=== PATIENT | male | born 1965 | race Two or more races ===

== ENCOUNTER 2019-07-01 09:44 | Observation (INO) | payer SELFPAY ==
[~2019-07-01] VITALS: Ht 175.3 cm; Wt 97.0 kg
--- NOTE | 2019-07-01 10:13 | EKG ---
[facility] [address] [place] [address] Test Date: 2019-07-01 Test Time: 09:50:52 Pat Name: FLORENCIA LOOMIS Department: Room: Gender: Production Machine Tender: : 1965 Requested By: ISAAC JANE Order Number: [id number] Reading MD: Sg Christina MD Measurements Intervals [place] Rate: 62 P: 52 SC: 150 QRS: 28 QRSD: 86 T: 53 QT: 396 QTc: 404 Interpretive Statements SINUS RHYTHM Electronically Signed On 07-01-2019 13:24:02 PHYSICIAN INTERNIST by Sg Christina MD
--- NOTE | 2019-07-01 10:13 | PHYS DOC ---
Past Medical History Past Medical History: Diabetes-Type II, High Cholesterol, Hypertension Smoking Status: Current Every Day Smoker Adult General Chief Complaint Chief Complaint: CHEST PAIN HPI HPI Patient is a 54 year old [place] Islander-speaking male with history of diabetes mellitus, hypertension, dyslipidemia, smoking who presents with with complaint of chest pain. Patient states he had an argument with boyfriend of his daughter this morning and then felt left side sharp chest pain with radiation to left shoulder and associated with shortness of breath that started about an hour prior to arrival to ER without dizziness, nausea, diaphoresis, palpitation, fev er or chills, URI symptoms. Patient rated his pain 5/10 and stated he had episodes of milder chest pain without seeking medical attention. Review of Systems Review of Systems Constitutional: Denies fever or chills [] Eyes: Denies change in visual acuity, redness, or eye pain [] HENT: Denies nasal congestion or sore throat [] Respiratory: Denies cough, reports shortness of breath [] Cardiovascular: No additional information not addressed in HPI [] GI: Denies abdominal pain, nausea, vomiting, bloody stools or diarrhea [] : Denies dysuria or hematuria [] Musculoskeletal: Denies back pain or joint pain [] Integument: Denies rash or skin lesions [] Neurologic: Denies headache, focal weakness or sensory changes [] Endocrine: Denies polyuria or polydipsia [] All other systems were reviewed and found to be within normal limits, except as documented in this note. Current Medications Current Medications Current Medications Medications (Trade) Dose Ordered Sig/Sheron Start Time Stop Time Status Last Admin Dose Admin Acetaminophen/ Hydrocodone Bitart (Lortab 5/325) 1 tab 1X ONCE 07/01/19 11:00 07/01/19 11:01 DC Aspirin (Children'S Aspirin) 324 mg 1X ONCE 07/01/19 10:15 07/01/19 10:17 DC 07/01/19 10:24 324 MG Nitroglycerin (Nitrostat) 0.4 mg PRN Q5MIN PRN 07/01/19 10:15 07/02/19 10:14 07/01/19 10:41 0.4 MG Allergies Allergies Allergies Coded Allergies Type Severity Reaction Last Updated Verified No Known Drug Allergies 07/01/19 No Physical Exam Physical Exam Constitutional: Well developed, well nourished, mild distress, non-toxic appearance. [] HENT: Normocephalic, atraumatic. Eyes: PERRLA, EOMI, conjunctiva normal, no discharge. [] Neck: Normal range of motion, no tenderness, supple, no stridor. [] Cardiovascular:Heart rate regular rhythm, no murmur [] Lungs & Thorax: Bilateral breath sounds clear to auscultation [] Abdomen: Bowel sounds normal, soft, no tenderness, no masses, no pulsatile masses. [] Skin: Warm, dry, no erythema, no rash. [] Back: No tenderness, no CVA tenderness. [] Extremities: No tenderness, no cyanosis, no clubbing, ROM intact, no edema. [] Neurologic: Alert and oriented X 3, no focal deficits noted. [] Psychologic: Affect normal, judgement normal, mood normal. [] Current Patient Data Vital Signs Vital Signs Date Time Temp Pulse Resp B/P (MAP) Pulse Ox O2 Delivery O2 Flow Rate FiO2 07/01/19 10:48 69 17 116/72 (87) 94 Room Air 07/01/19 09:46 98.6 98.6 Lab Values Laboratory Tests Test 07/01/19 10:00 White Blood Count 8.3 x10^3/uL (4.0-11.0) Red Blood Count 4.99 x10^6/uL (4.30-5.70) Hemoglobin 15.0 g/dL (13.0-17.5) Hematocrit 43.6 % (39.0-53.0) Mean Corpuscular Volume 87 fL (79-100) Mean Corpuscular Hemoglobin 30 pg (25-35) Mean Corpuscular Hemoglobin Concent 35 g/dL (31-37) Red Cell Distribution Width 13.5 % (11.5-14.5) Platelet Count 250 x10^3/uL (140-400) Neutrophils (%) (Auto) 63 % (31-73) Lymphocytes (%) (Auto) 25 % (24-48) Monocytes (%) (Auto) 9 % (0-9) Eosinophils (%) (Auto) 2 % (0-3) Basophils (%) (Auto) 1 % (0-3) Neutrophils # (Auto) 5.2 x10^3/uL (1.8-7.7) Lymphocytes # (Auto) 2.1 x10^3/uL (1.0-4.8) Monocytes # (Auto) 0.8 x10^3/uL (0.0-1.1) Eosinophils # (Auto) 0.2 x10^3/uL (0.0-0.7) Basophils # (Auto) 0.1 x10^3/uL (0.0-0.2) Sodium Level 144 mmol/L (136-145) Potassium Level 4.0 mmol/L (3.5-5.1) Chloride Level 108 mmol/L (98-107) H Carbon Dioxide Level 25 mmol/L (21-32) Anion Gap 11 (6-14) Blood Urea Nitrogen 8 mg/dL (8-26) Creatinine 1.1 mg/dL (0.7-1.3) Estimated GFR (Cockcroft-Gault) 70.3 BUN/Creatinine Ratio 7 (6-20) Glucose Level 174 mg/dL (70-99) H Calcium Level 8.8 mg/dL (8.5-10.1) Magnesium Level 2.1 mg/dL (1.8-2.4) Total Bilirubin 0.4 mg/dL (0.2-1.0) Aspartate Amino Transferase (AST) 20 U/L (15-37) Alanine Aminotransferase (ALT) 37 U/L (16-63) Alkaline Phosphatase 103 U/L (46-116) Creatine Kinase 377 U/L (39-308) H Troponin I Quantitative < 0.017 ng/mL (0.000-0.055) QU-Ocm-X-Type Natriuretic Peptide 16 pg/mL (0-124) Total Protein 6.8 g/dL (6.4-8.2) Albumin 4.0 g/dL (3.4-5.0) Albumin/Globulin Ratio 1.4 (1.0-1.7) Lipase 199 U/L (73-393) Laboratory Tests 07/01/19 10:00 Laboratory Tests 07/01/19 10:00 EKG EKG EKG interpreted by me. EKG at 0650 showed normal sinus rhythm at rate of 62, normal NV and QT intervals, no acute ST and T wave elevation. Radiology/Procedures Radiology/Procedures [facility] [address] [place] [address] IMAGING REPORT Signed PATIENT: FLORENCIA LOOMIS ACCOUNT: [id number] : 1965 LOCATION: ER AGE: 54 SEX: M EXAM STATUS: REG ER ORD. PHYSICIAN: ISAAC JANE MD REASON: Chest pain PROCEDURE: PORTABLE CHEST 1V PORTABLE CHEST 1V History: Chest pain Comparison: None. Findings: Single view of the chest is submitted. There is no infiltrate, pneumothorax, or effusion. The pericardial cardiac silhouette is within normal limits in size. There is some degenerative change of the acromioclavicular joints greater on the right. Impression: 1. There is no radiographic evidence of acute cardiopulmonary disease. Electronically signed by: Sarahi Callejas MD (07/01/2019 10:57 AM) [id number] DICTATED and SIGNED BY: SARAHI CALLEJAS MD DATE: 07/01/19 105 Course & Med Decision Making Course & Med Decision Making Pertinent Labs and Imaging studies reviewed. (See chart for details) Evaluation of patient in ER showed 54-year-old male patient with heart score of 4 with complaining of chest pain after stressful condition. Patient admitted with nitro glycerin. Labs was unremarkable except for mild elevation of CK and blood sugar. Patient complaining of headache after treatment with nitro and [place] was given. Patient requiring admission for further evaluation and treatment. Discussed with Dr. Gomez who is in agreement with admission. Discussed findings and plan with patient and family, who acknowledge understanding and agreement. Dragon Disclaimer Dragon Disclaimer This electronic medical record was generated, in whole or in part, using a voice recognition dictation system. Departure Departure Impression: Primary Impression: Acute chest pain Additional Impressions: Elevated CK Uncontrolled diabetes mellitus Disposition: ADMITTED INPATIENT (At 1101) Admitting Physician: ABIODUN (Dr. Gomez accepted admission at 11 00) Condition: IMPROVED Referrals: BRIEN CARLTON MD (PCP) The HEART Score for CP Pts HEART Score for Chest Pain: HEART Score for Chest Pain Response (Comments) Value History Moderately Suspicious 1 ECG Normal 0 Age >45 - < 65 1 Risk Factors >3 Risk Factors or Hx CAD 2 Troponin < Normal Limit 0 Total 4 Risk Factors: Risk Factors: DM, Current or recent (<one month) smoker, HTN, HLP, family history of CAD, obesity. Risk Scores: Score 0 - 3: 2.5% MACE over next 6 weeks - Discharge Home Score 4 - 6: 20.3% MACE over next 6 weeks - Admit for Clinical Observation Score 7 - 10: 72.7% MACE over next 6 weeks - Early Invasive Strategies Problem Qualifiers Additional Impressions: Uncontrolled diabetes mellitus Diabetes mellitus type: other specified (including TODD) Glycemic state: with hyperglycemia Qualified Codes: E13.65 - Other specified diabetes mellitus with hyperglycemia ISAAC JANE MD Jul 01, 2019 10:13
[2019-07-01] MEDS ORDERED: ASPIRIN CHEWABLE 81 MG TABLET. PO ONE (10:15)
[2019-07-01] MEDS: NITROGLYCERIN SUBLINGUAL 0.4 MG BOTTLE OF 25. SL PRN ×3 (10:26→10:41)
[2019-07-01 10:28] LABS: BASO # 0.1 x10^3/uL (0.0-0.2); BASO % 1 % (0-3); EOS # 0.2 x10^3/uL (0.0-0.7); EOS % 2 % (0-3); HEMATOCRIT 43.6 % (39.0-53.0); LYMPH # 2.1 x10^3/uL (1.0-4.8); LYMPH % 25 % (24-48); MEAN CORPUSCULAR HEMOGLOBIN 30 pg (25-35); MEAN CORPUSCULAR HGB CONC 35 g/dL (31-37); MEAN CORPUSCULAR VOLUME 87 fL (79-100); MONO # 0.8 x10^3/uL (0.0-1.1); MONO % 9 % (0-9); NEUT # 5.2 x10^3/uL (1.8-7.7); NEUT % 63 % (31-73); PLATELET COUNT 250 x10^3/uL (140-400); RED BLOOD COUNT 4.99 x10^6/uL (4.30-5.70); RED CELL DISTRIBUTION WIDTH 13.5 % (11.5-14.5); WHITE BLOOD COUNT 8.3 x10^3/uL (4.0-11.0)
[2019-07-01 10:44] LABS: CALCIUM 8.8 mg/dL (8.5-10.1); CREATININE 1.1 mg/dL (0.7-1.3); GFR 70.3
[2019-07-01 10:50] LABS: ALBUMIN/GLOBULIN RATIO 1.4 (1.0-1.7); MAGNESIUM 2.1 mg/dL (1.8-2.4); TOTAL BILIRUBIN 0.4 mg/dL (0.2-1.0); TOTAL PROTEIN 6.8 g/dL (6.4-8.2)
[2019-07-01] MEDS ORDERED: HYDROcodone/APAP 5/325MG 1 TAB TABLET PO ONE (11:00)
--- NOTE | 2019-07-01 11:00 | RAD ---
PORTABLE CHEST 1V History: Chest pain Comparison: None. Findings: Single view of the chest is submitted. There is no infiltrate, pneumothorax, or effusion. The pericardial cardiac silhouette is within normal limits in size. There is some degenerative change of the acromioclavicular joints greater on the right. Impression: 1. There is no radiographic evidence of acute cardiopulmonary disease. Electronically signed by: Cornell Callejas MD (07/01/2019 10:57 AM) [id number]
--- NOTE | 2019-07-01 11:45 | HP ---
ADMIT DATE: 07/01/2019 CHIEF COMPLAINT: Chest pain. HISTORY OF PRESENT ILLNESS: The patient is a pleasant middle-aged male who got into an argument today and developed some chest pain that has been radiating to the left shoulder. He has some associated nausea. The patient does have some risk factors for coronary artery disease including diabetes and tobacco abuse, hypertension, and hyperlipidemia. I discussed the case with ER physician. We are going to admit the patient and consult Cardiology. PAST MEDICAL HISTORY: Diabetes, tobacco abuse, hypertension, and hyperlipidemia. ALLERGIES: None. FAMILY HISTORY: Coronary artery disease. SOCIAL HISTORY: He smokes. He drinks socially. No drugs. MEDICATIONS: Reviewed. Please refer to the MRAD. REVIEW OF SYSTEMS: GENERAL: No history of weight change, weakness or fevers. SKIN: No bruising, hair changes or rashes. EYES: No blurred, double or loss of vision. NOSE AND THROAT: No history of nosebleeds, hoarseness or sore throat. HEART: No history of palpitations or shortness of breath on exertion. LUNGS: Denies cough, hemoptysis, wheezing or shortness of breath. GASTROINTESTINAL: Denies changes in appetite, vomiting, diarrhea or constipation. GENITOURINARY: No history of frequency, urgency, hesitancy or nocturia. NEUROLOGIC: Denies history of numbness, tingling, tremor or weakness. PSYCHIATRIC: No history of panic, anxiety or depression. ENDOCRINE: No history of heat or cold intolerance, polyuria or polydipsia. EXTREMITIES: Denies muscle weakness, joint pain, pain on walking or stiffness. PHYSICAL EXAMINATION: VITALS: Within normal limits and are stable. GENERAL: No apparent distress. Alert and oriented. HEENT: Normal cephalic atraumatic, external auditory canals are patent EYES: Extraocular muscles are intact, pupils are equally round and reactive to light and accommodation MUSCULOSKELETAL: Well developed, well nourished, good range of motion ENDOCRINE: No thyromegaly was palpated LYMPHATICS: No cervical chain or axillary nodes were noted HEMATOPOIETIC: No bruising NECK: Supple, no JVD, no thyromegaly was noted. LUNGS: Clear to auscultation in all lung arita without rhonchi or wheezing. HEART: RRR, S1, S2 present. Peripheral pulses intact, no obvious murmurs were noted. ABDOMEN: Soft, nontender. Positive bowel sounds no organomegaly, normal bowel sounds. EXTREMITIES: Without any cyanosis, clubbing, or edema. Pedal pulses intact, Homans sign is negative. NEUROLOGIC: Normal speech, normal tone. A & O x3, moves all extremities, no obvious focal deficits. PSYCHIATRIC: Normal affect, normal mood. Stable. SKIN: No ulcerations or rashes, good skin turgor, no jaundice. VASCULAR: Good capillary refill, neurovascular bundle appears to be intact. LABORATORY DATA: Troponin is 0. Hematology is normal. Electrolytes are normal. ASSESSMENT AND PLAN: Chest pain, rule out coronary artery disease. The patient has been admitted. We will check serial enzymes and serial EKGs. Consult Cardiology. Cardiac monitoring, home meds, and deep venous thrombosis prophylaxis. Full code. Suspect he might need a stress test, but we will await Cardiology input. BRISSA IYER DO DR: MOUSTAPHA/ada JOB#: [id number] / [id number]
[2019-07-01 12:10] VITALS: BP 125/78
--- NOTE | 2019-07-01 13:00 | PDOC2 ---
QUIN SUAREZ MOTORBOAT MECHANIC 07/01/19 1300: CARDIAC CONSULT DATE OF CONSULT Date of Consult DATE: 07/01/19 TIME: 12:38 REASON FOR CONSULT Reason for Consult: Chest pain REFERRING PHYSICIAN Referring Physician: Yoana SOURCE Source: Chart review, Patient HISTORY OF PRESENT ILLNESS HISTORY OF PRESENT ILLNESS This is a pleasant 54 yo male admitted for complains of chest pain. His daughter at the bedside which helped with the details. Reports that he had a dispute with his daughter's boyfriend this morning. He then started having poking sensation to his left chest that went to his shoulder to his left arm. No nausea but felt some SOA and was feeling cold but no diaphoresis. These lasted about 1.5 hours and he finally was able to calm down. No medications taken in regards to his symptoms. Reports no hx of heart disease. No recent falls, injury, or any recent long distance travel. He has HTN, HLP and DM2 and verbalized compliance with his meds. No recreational drug use but smokes tobacco. No further recurrence of his symptoms. PAST MEDICAL HISTORY Cardiovascular: HTN, Hyperlipidemia Pulmonary: No pertinent hx CENTRAL NERVOUS SYSTEM: Other (No pertinent history) GI: No pertinent hx Heme/Onc: No pertinent hx Hepatobiliary: No pertinent hx Psych: No pertinent hx Musculoskeletal: Osteoarthritis Rheumatologic: No pertinent hx Infectious disease: No pertinent hx ENT: No pertinent hx Renal/: No pertinent hx, Other (nephrolithiasis) Endocrine: Diabetes (2) Dermatology: No pertinent hx SOCIAL HISTORY Smoke: <1 pack per day ALCOHOL: occassional Drugs: None Lives: with Family CURRENT MEDICATIONS CURRENT MEDICATIONS Current Medications Medications (Trade) Dose Ordered Sig/Sheron Route PRN Reason Start Time Stop Time Status Last Admin Dose Admin Aspirin (Children'S Aspirin) 324 mg 1X ONCE PO 07/01/19 10:15 07/01/19 10:17 DC 07/01/19 10:24 Nitroglycerin (Nitrostat) 0.4 mg PRN Q5MIN PRN SL CP RATING > 1/10 07/01/19 10:15 07/02/19 10:14 07/01/19 10:41 Acetaminophen/ Hydrocodone Bitart (Lortab 5/325) 1 tab 1X ONCE PO 07/01/19 11:00 07/01/19 11:01 DC 07/01/19 11:20 ALLERGIES ALLERGIES: Coded Allergies: No Known Drug Allergies (Unverified , 07/01/19) ROS Review of System 14 point ROS evaluated with pertinent positives noted per HPI PHYSICAL EXAM General: Alert, Oriented X3, Cooperative, No acute distress HEENT: Atraumatic, Mucous membr. moist/pink Lungs: Clear to auscultation, Normal air movement Heart: Regular rate (SR), Normal S1, Normal S2, No murmurs Abdomen: Soft, No tenderness Extremities: No cyanosis, No edema Skin: No breakdown, No significant lesion Neuro: Normal speech, Sensation intact Psych/Mental Status: Mental status NL, Mood NL MUSCULOSKELETAL: Osteoarthritic changes both hands VITALS/I&O VITALS/I&O: Vital Signs Date Time Temp Pulse Resp B/P (MAP) Pulse Ox O2 Delivery O2 Flow Rate FiO2 07/01/19 12:10 98.0 57 18 125/78 (94) 97 Room Air 98.0 LABS Lab: Laboratory Tests Test 07/01/19 10:00 07/01/19 12:13 White Blood Count 8.3 x10^3/uL (4.0-11.0) Red Blood Count 4.99 x10^6/uL (4.30-5.70) Hemoglobin 15.0 g/dL (13.0-17.5) Hematocrit 43.6 % (39.0-53.0) Mean Corpuscular Volume 87 fL (79-100) Mean Corpuscular Hemoglobin 30 pg (25-35) Mean Corpuscular Hemoglobin Concent 35 g/dL (31-37) Red Cell Distribution Width 13.5 % (11.5-14.5) Platelet Count 250 x10^3/uL (140-400) Neutrophils (%) (Auto) 63 % (31-73) Lymphocytes (%) (Auto) 25 % (24-48) Monocytes (%) (Auto) 9 % (0-9) Eosinophils (%) (Auto) 2 % (0-3) Basophils (%) (Auto) 1 % (0-3) Neutrophils # (Auto) 5.2 x10^3/uL (1.8-7.7) Lymphocytes # (Auto) 2.1 x10^3/uL (1.0-4.8) Monocytes # (Auto) 0.8 x10^3/uL (0.0-1.1) Eosinophils # (Auto) 0.2 x10^3/uL (0.0-0.7) Basophils # (Auto) 0.1 x10^3/uL (0.0-0.2) Sodium Level 144 mmol/L (136-145) Potassium Level 4.0 mmol/L (3.5-5.1) Chloride Level 108 mmol/L (98-107) H Carbon Dioxide Level 25 mmol/L (21-32) Anion Gap 11 (6-14) Blood Urea Nitrogen 8 mg/dL (8-26) Creatinine 1.1 mg/dL (0.7-1.3) Estimated GFR (Cockcroft-Gault) 70.3 BUN/Creatinine Ratio 7 (6-20) Glucose Level 174 mg/dL (70-99) H Calcium Level 8.8 mg/dL (8.5-10.1) Magnesium Level 2.1 mg/dL (1.8-2.4) Total Bilirubin 0.4 mg/dL (0.2-1.0) Aspartate Amino Transferase (AST) 20 U/L (15-37) Alanine Aminotransferase (ALT) 37 U/L (16-63) Alkaline Phosphatase 103 U/L (46-116) Creatine Kinase 377 U/L (39-308) H Troponin I Quantitative < 0.017 ng/mL (0.000-0.055) PD-Wsz-H-Type Natriuretic Peptide 16 pg/mL (0-124) Total Protein 6.8 g/dL (6.4-8.2) Albumin 4.0 g/dL (3.4-5.0) Albumin/Globulin Ratio 1.4 (1.0-1.7) Lipase 199 U/L (73-393) Glucose (Fingerstick) 105 mg/dL (70-99) H Laboratory Tests 07/01/19 10:00 Laboratory Tests 07/01/19 10:00 ASSESSMENT/PLAN ASSESSMENT/PLAN 1. Chest pain: likely induced by anxiety. initial trop nml. EKG SR no acute changes 2. HTN: Controlled 3. HLP 4. DM2 5. Tobaccoism Recommendations 1. Trend troponin 2. Restart home meds. ASA 3. Monitor rhythm overnight.Will check lipids in AM. 4. Smoking cessation DENISE MENDEZ MD 07/01/19 1324: CARDIAC CONSULT ASSESSMENT/PLAN ASSESSMENT/PLAN Pt. seen and examined. Agree with above Outside Plant Supervisor note. Exam wnl, trop/ekg wnl Trend trops, if normal, ok to DC and consider outpt stress testing. Thanks QUIN SUAREZ APRN Jul 01, 2019 13:00 DENISE MENDEZ MD Jul 01, 2019 13:24
[2019-07-01] MEDS ORDERED: BUPR150T6 PO (14:13)
[2019-07-01] MEDS ORDERED: LISI10TA2 PO (14:13)
[2019-07-01] MEDS ORDERED: SITA1TAB11 PO (14:13)
[2019-07-01] MEDS ORDERED: INSU100I13 SQ (14:13)
[2019-07-01] MEDS ORDERED: LIPITOR80 MG PO (14:13)
[2019-07-01 15:00] VITALS: BP 122/73
[2019-07-02] MEDS ORDERED: ASPIRIN ENTERIC COATED 81 MG TABLET.DR. PO SCH (08:00)
== END 2019-07-01 19:15 | disposition home or self-care (01) ==
LOC: ER 09:44 → 2 SOUTH 10:34
PROVIDERS: ADMIT Internal Medicine; ATTEND Internal Medicine
DX: R07.89 Other chest pain (principal); R74.8 Abnormal levels of other serum enzymes; I10 Essential (primary) hypertension; E11.9 Type 2 diabetes mellitus without complications; E78.00 Pure hypercholesterolemia, unspecified; F17.200 Nicotine dependence, unspecified, uncomplicated
CPT/HCPCS: 36415; 71045; 80053; 82550; 82962; 83690; 83735; 83880; 84443; 84484; 85025; 93005; 99285; 99406; G0378; G0379

== ENCOUNTER 2019-10-03 21:56 | Emergency (ER) | payer SELFPAY ==
[~2019-10-03] VITALS: Ht 175.3 cm; Wt 100.0 kg
[~2019-10-03 21:56] MED LIST: BUPR150T6 PO; INSU100I13 SQ; LIPITOR80 MG PO; LISI10TA2 PO; SITA1TAB11 PO
[2019-10-03 22:10] VITALS: BP 148/67
[2019-10-03] MEDS ORDERED: oxyCODONE/APAP 7.5/325 1 TAB TABLET PO ONE (23:00)
--- NOTE | 2019-10-03 23:33 | RAD ---
INDICATION: Reason: crush injury / Spl. Instructions: / History: COMPARISON: None. IMPRESSION: Left forearm: 2 views obtained. Projecting over the soft tissues adjacent to the proximal ulna there is a round 2 mm high density structure seen. Could be calcification in the soft tissues, object on the skin or foreign body. A definite acute fracture is not seen. Electronically signed by: Meek Gramajo MD (10/03/2019 11:30 PM) [id number]
--- NOTE | 2019-10-04 00:04 | PHYS DOC ---
Past Medical History Past Medical History: Diabetes-Type II, High Cholesterol, Hypertension Past Surgical History: Cholecystectomy Smoking Status: Current Every Day Smoker Alcohol Use: None General Adult EDM: Chief Complaint: UPPER EXTREMITY PAIN HPI: HPI: Patient is a 54 year old male who presents with complaint of left arm pain and swelling after crush injury from a trailer hitch that hit his arm. Patient denies any other injuries. He rates pain at an 8 out of 10 and states the pain is worsened with movement of his arm. [] Review of Systems: Review of Systems: Constitutional: Denies fever or chills. [] Respiratory: Denies cough or shortness of breath. [] Cardiovascular: Denies chest pain or edema. [] Musculoskeletal: Complains of left arm swelling and pain. [] Integument: Denies rash. [] Neurologic: Denies headache, focal weakness or sensory changes. [] Heart Score: Risk Factors: Risk Factors: DM, Current or recent (<one month) smoker, HTN, HLP, family history of CAD, obesity. Risk Scores: Score 0 - 3: 2.5% MACE over next 6 weeks - Discharge Home Score 4 - 6: 20.3% MACE over next 6 weeks - Admit for Clinical Observation Score 7 - 10: 72.7% MACE over next 6 weeks - Early Invasive Strategies Current Medications: Current Medications Medications (Trade) Dose Ordered Sig/Sheron Start Time Stop Time Status Last Admin Dose Admin Oxycodone/ Acetaminophen (Percocet 7.5/ 325) 1 tab 1X ONCE 10/03/19 23:00 10/03/19 23:01 DC 10/03/19 23:09 1 TAB Allergies: Allergies: Allergies Coded Allergies Type Severity Reaction Last Updated Verified No Known Drug Allergies 07/01/19 No Physical Exam: PE: Constitutional: Well developed, well nourished, no acute distress, non-toxic appearance. [] Cardiovascular: Regular rate and rhythm [] Lungs & Thorax: Bilateral breath sounds clear to auscultation [] Skin: Warm, dry, no erythema, no rash. [] Extremities: Left forearm demonstrates soft tissue swelling from the proximal one third to distal one third with diffuse tenderness. No deformity is noted on exam. [] Neurologic: Alert and oriented X 3, no focal deficits noted. [] Current Patient Data: Vital Signs: Vital Signs Date Time Temp Pulse Resp B/P (MAP) Pulse Ox O2 Delivery O2 Flow Rate FiO2 10/03/19 23:09 18 97 Room Air 10/03/19 22:10 98.5 70 148/67 (94) 98.5 EKG: EKG: [] Radiology/Procedures: Radiology/Procedures: [] Impression: PROCEDURE: FOREARM LEFT INDICATION: Reason: crush injury / Spl. Instructions: / History: COMPARISON: None. IMPRESSION: Left forearm: 2 views obtained. Projecting over the soft tissues adjacent to the proximal ulna there is a round 2 mm high density structure seen. Could be calcification in the soft tissues, object on the skin or foreign body. A definite acute fracture is not seen. Electronically signed by: Meek Gramajo MD (10/03/2019 11:30 PM) [id number] Course & Med Decision Making: Course & Med Decision Making Pertinent Labs and Imaging studies reviewed. (See chart for details) [] Dragon Disclaimer: Dragon Disclaimer: This electronic medical record was generated, in whole or in part, using a voice recognition dictation system. Departure Departure Impression: Primary Impression: Contusion of left forearm, initial encounter Disposition: 01 HOME, SELF-CARE Condition: STABLE Referrals: NO PCP (PCP) Patient Instructions: Contusion Scripts Hydrocodone/Apap 5-325 (NORCO 5-325 TABLET) 1 Each Tablet 1-2 EACH PO PRN Q6HRS PRN for PAIN, #15 as needed for pain Prov: VICENTE GALLARDO Jr. DO 10/04/19 Justicifation of Admission Dx: Justifications for Admission: Justification of Admission Dx: N/A VICENTE GALLARDO Jr. DO Oct 04, 2019 00:04
[2019-10-04] MEDS ORDERED: HYDR-3164 PO (00:19)
== END 2019-10-04 00:41 | disposition home or self-care (01) ==
LOC: ER 21:56
DX: S50.12XA Contusion of left forearm, initial encounter (principal); E11.9 Type 2 diabetes mellitus without complications; E78.00 Pure hypercholesterolemia, unspecified; I10 Essential (primary) hypertension; F17.200 Nicotine dependence, unspecified, uncomplicated; W22.8XXA Striking against or struck by other objects, initial encounter; Y93.89 Activity, other specified; Y92.89 Other specified places as the place of occurrence of the external cause; Y99.8 Other external cause status
CPT/HCPCS: 73090; 99283